=== PATIENT | male | born 1950 | race Caucasian/White ===

== ENCOUNTER → 2024-03-10 13:03 | Outpatient (REF) | payer MEDICARE, OTHER, SELFPAY | LOC: RCS 13:03 | PROVIDERS: ATTENDING PHYSICIAN Internal Medicine Cardiovascular Disease; FAMILY PHYSICIAN Family Medicine | DX: I44.7 Left bundle-branch block, unspecified (principal); R06.09 Other forms of dyspnea; R00.2 Palpitations | CPT/HCPCS: 93225; 93226 ==

== ENCOUNTER → 2024-03-15 08:46 | Outpatient (REF) | payer MEDICARE, OTHER, SELFPAY | LOC: HWRCS 08:46 | PROVIDERS: ATTENDING PHYSICIAN Internal Medicine Cardiovascular Disease; FAMILY PHYSICIAN Family Medicine | DX: I44.7 Left bundle-branch block, unspecified (principal); R06.09 Other forms of dyspnea | CPT/HCPCS: 93306 ==

== ENCOUNTER → 2024-03-24 08:41 | Day surgery (SDC) | payer MEDICARE, OTHER, SELFPAY ==
[2024-03-24 10:49] LABS: Hematocrit 44.4 % (39.0-52.0); Hemoglobin 15.2 g/dL (13.0-18.0); Mean Corp Hgb Conc. 34.2 g/dL (33.0-37.0); Mean Corpuscular Hgb 30.3 pg (27.0-31.0); Mean Corpuscular Volume 88.6 fL (80.0-94.0); Mean Platelet Volume 10.9 fL (7.4-10.4); Platelet Count 237 10^3/uL (130-400); Red Blood Cell Count 5.01 10^6/uL (4.70-6.10); Red Cell Dist. Width 12.5 % (11.5-14.5); White Blood Cell Count 6.3 10^3/uL (4.8-10.8)
[2024-03-24 10:58] LABS: APTT 32.2 Sec (23.4-35.0); INR 1.07; PT 13.9 Sec (11.4-14.6)
[2024-03-24 11:54] LABS: ALT (SGPT) 27 U/L (0-50); AST (SGOT) 37 U/L (17-59); Alkaline Phosphatase 95 U/L (38-126); Blood Urea Nitrogen 19 mg/dl (9-20); Calcium 9.9 mg/dl (8.4-10.2); Carbon Dioxide 27 mmol/L (22-30); Chloride 102 mmol/L (98-107); Glucose 96 mg/dl (70-99); Potassium 4.3 mmol/L (3.5-5.1); Sodium 140 mmol/L (135-145); Total Bilirubin 0.8 mg/dl (0.2-1.3); Total Protein 7.9 g/dl (6.3-8.2); eGFR > 60.00
== END ==
LOC: SDSPAT 08:41
PROVIDERS: ATTENDING PHYSICIAN Surgery; FAMILY PHYSICIAN Family Medicine; REFERRING PHYSICIAN Specialist
DX: Z01.812 Encounter for preprocedural laboratory examination (principal); K40.90 Unilateral inguinal hernia, without obstruction or gangrene, not specified as recurrent
CPT/HCPCS: 85027; 85730; 85610; 80053; 36415

== ENCOUNTER 2024-04-07 06:10 | Day surgery (SDC) | payer MEDICARE, OTHER, SELFPAY ==
[2024-02-10 09:12] VITALS: BMI 25.8
--- NOTE | 2024-02-11 09:32 | PTCARENOTE ---
Patients 02/10/24 EKG abnormal- reviewed by Dr. Izquierdo. Requests documentation indicating LBBB is not new or patient will require cardio or medical clearance. PCP does not have previous ECG and no documentation noting LBBB available. Hoa @
[facility] office notified.
--- NOTE | 2024-02-11 12:26 | PTCARENOTE ---
Per oHa @ Dr. Bridges office- patient is getting preop cardio clearance
[2024-03-24 09:04] VITALS: BMI 25.2
[2024-04-07] VITALS (7 sets, daily range): BP systolic 103–140; BP diastolic 70–90; BMI 25.2
[2024-04-07] MEDS: TYLENOL 1000 MG PO (06:32)
[2024-04-07] MEDS: NORMOSOL-R 1000 IV (06:43)
== END 2024-04-07 12:35 | disposition home or self-care (01) ==
LOC: SDS 06:10
PROVIDERS: ATTENDING PHYSICIAN Surgery
DX: N43.41 Spermatocele of epididymis, single (principal); K40.90 Unilateral inguinal hernia, without obstruction or gangrene, not specified as recurrent; Z98.890 Other specified postprocedural states
CPT/HCPCS: 54840; 49650; 88304; C1781

== ENCOUNTER → 2024-05-18 10:56 | Outpatient (REF) | payer MEDICARE, OTHER, SELFPAY | LOC: RAD 10:56 | PROVIDERS: ATTENDING PHYSICIAN Internal Medicine Cardiovascular Disease; FAMILY PHYSICIAN Family Medicine | DX: R06.09 Other forms of dyspnea (principal); R00.2 Palpitations | CPT/HCPCS: 71046 ==

== ENCOUNTER → 2024-05-26 12:31 | Outpatient (REF) | payer MEDICARE, OTHER, SELFPAY | LOC: RAD 12:31 | PROVIDERS: ATTENDING PHYSICIAN Internal Medicine Cardiovascular Disease; FAMILY PHYSICIAN Family Medicine | DX: R06.09 Other forms of dyspnea (principal) | CPT/HCPCS: 71275; Q9967 ==